=== PATIENT | female | born 2000 | race Caucasian/White ===

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

== ENCOUNTER 2022-12-03 18:21 | Emergency (ER) | payer SELFPAY ==
[2022-12-03 19:05] VITALS: BP 160/104; PULSE 121; RESP 22; TEMP 37; O2SAT 99; BMI 39.4
--- NOTE | 2022-12-03 19:53 | EXP.UTC ---
Discharge Plan Disposition Patient Disposition: Home, Self-Care Condition: Good Prescriptions Prescriptions: New prednisone 10 mg tablet 10 mg PO BID 5 Days Qty: 10 0RF azithromycin [Zithromax Z-Matias] 250 mg tablet See Rx Instructions .ROUTE .COMPLEX 5 Days Qty: 6 0RF Rx Instructions: For 250 mg dose pack: take 500 mg today (day 1), then 250 mg for 4 days (days 2-5) benzonatate 100 mg capsule 100 mg PO BID PRN (Reason: cough) Qty: 15 0RF Rx Instructions: Take at night for cough guaifenesin [Mucinex] 600 mg tablet extended release 12hr 1,200 mg PO BID PRN (Reason: cough) Qty: 20 0RF No Action losartan-hydrochlorothiazide 50-12.5 mg tablet 1 tab PO DAILY Label Comments: TAKE 1 TABLET 1 TIME EACH DAY Referrals Follow up/Referrals: Vishal Lozoya APRN [Primary Care Provider] - See instructions Activity Restrictions/Add. Instructions Additional Instructions/Restrictions: Follow up with your Family Doctror you need to have follow up chest xray in 4-6wks Again follow with your family doctor for repeat chest xray as discussed to monitor area as discussed Start antibiotic today. Be sure to complete entire prescription even if feeling better Monitor temp. Tylenol every 4 hours as needed and / or ibuprofen every 6 hours as needed ( As long as your primary care physician has told you that it ok to take both. For fever/aches/pains ER if no less than 101 despite Tylenol or Motrin Humidifier/vaporizer or hot steamy shower Inhaler every 4-6 hours as needed like we discussed. If unsure how to use it, ask pharmacist to demonstrate how. Should help open airways and improve cough, wheezing, and shortness of breath Mucinex during the day for your cough and cough suppressant only at night. Be sure to drink lots of water. *Tessalon Perles will not cause drowsiness but use at bedtime to help stop cough so that you may get some rest. *Start steroid today. Helps with inflammation therefore, cough and wheezing. Follow directions on the package. Reviewed side effects. Patient reports taking them before. Follow up IMMEDIATELY for new or worsening of symptoms OR no noticeable improvement over the next 48-72 hours. 911 immediately for any life threatening symptoms such as chest pain or difficulty breathing Clinical Impressions Clinical Impression: Pneumonia Stand Alone Forms Stand Alone Forms: Work/School Release Instructions Patient Instructions: Pneumonia-Adult, Cough Discharge ED Provider: Rosario Rivera [facility] General Stated complaint: Deep Cough Mode of Arrival: Ambulatory Source of Information: Patient Limitations: No Limitations Time Seen by Provider: 12/03/22 19:53 Description of Symptoms (Recalled from Triage Doc. by RN): PATIENT C/O DEEP COUGH THAT IS MAKING HER CHEST SORE THAT STARTED LAST NIGHT. DENIES ANY OTHER SYMPTOMS HEENT Symptoms (Recalled from RN notes): No Resp Symptoms (Recalled from RN notes): Yes Skin Symptoms (Recalled from RN notes): No MS Symptoms (Recalled from RN notes): No Functional Status (Recalled from RN notes): WNL History of Present Illness Provider Complaint: Patient states that she had bronchitis a few weeks ago, States that she started last night with worsening cough, States that she wasnt able to sleep much for the cough and has had a little chest congestion but not coughing anything up, States that she is starting to get sore from coughing so much. denies fever, denies chills, denies SOA states that she is just having a deep cough that hurts at times when she coughs Related Data Home Medications Medication Instructions Recorded Confirmed losartan 50 mg-hydrochlorothiazide 1 tab PO DAILY Hypertension 12/03/22 12/03/22 12.5 mg tablet Previous Rx's Medication Instructions Recorded azithromycin 250 mg tablet See Rx Instructions PO .COMPLEX 5 12/03/22 (Zithromax Z-Matias) days #6 tabs benzonatate 100 mg
--- NOTE | 2022-12-03 19:58 | XR_ITS ---
PROCEDURE INFORMATION: Exam: XR Chest Exam date and time: 12/03/2022 7:56 PM Age: 22 years old Clinical indication: Cough TECHNIQUE: Imaging protocol: Radiologic exam of the chest. Views: 2 views. COMPARISON: No relevant prior studies available. FINDINGS: Lungs: Hazy increased density noted overlying the heart on the lateral view thought to lie in the right middle lobe on the PA view suggesting possible developing right middle lobe pneumonia. And incidental 6 mm nodular appearing density in the right mid lung over the 3rd anterior and 6th posterior interspace that is seen anteriorly on the lateral view. Pleural spaces: Unremarkable. No pleural effusion. No pneumothorax. Heart/Mediastinum: Unremarkable. Bones/joints: Unremarkable. IMPRESSION: 1. Right middle lobe infiltrate. Advise follow-up chest x-ray in 4-6 weeks to ensure resolution of this finding. 2. Incidental 6 mm right upper lobe nodule fairly dense for size suggesting a calcified granuloma.
[2022-12-03 20:07] LABS: UTC Pregnancy Test, Urine Negative (Negative)
[2022-12-03 21:03] VITALS: BP 150/92; PULSE 100; RESP 22; TEMP 37; O2SAT 99
== END 2022-12-03 21:08 | disposition home or self-care (01) ==
PROVIDERS: Emergency Provider Nurse Practitioner; PCP Nurse Practitioner Family
DX: J18.9 Pneumonia, unspecified organism (principal); R05.1 Acute cough
CPT/HCPCS: 71046; 81025; 99212; 99214; G0463

== ENCOUNTER 2023-07-20 14:58 | Emergency (ER) | payer SELFPAY ==
[2023-07-20 15:30] VITALS: BP 172/106; PULSE 88; RESP 20; TEMP 36.6; O2SAT 99; BMI 38.2
--- NOTE | 2023-07-20 15:44 | EXP.UTC ---
Discharge Plan Disposition Patient Disposition: Home, Self-Care Condition: Good Prescriptions Prescriptions: New methocarbamol 500 mg tablet 500 mg PO TID PRN (Reason: muscle spasm) Qty: 12 0RF ondansetron 4 mg tablet,disintegrating 4 mg PO Q8H PRN (Reason: nausea and vomiting) Qty: 10 0RF No Action losartan 25 mg Tablet 25 mg PO DAILY Referrals Follow up/Referrals: Provider,Referral, MD [Primary Care Provider] - See instructions Activity Restrictions/Add. Instructions Additional Instructions/Restrictions: Make sure that you are taking your blood pressure medication as prescribed *Monitor Temp, Over the counter Motrin or Tylenol as directed/as needed Tylenol every 4 hours and Motrin every 6 hours (as long as your family doctor has told you that you can take it) for fever or pain. and straight to ER if unable to lower temp less than 101.0 after medication given *Warm salt water gargles may help to soothe the throat Make sure that you are drinking plenty of fluids for the next few days *Throat Lozenges? *Warm fluids like tea with honey may help to soothe the throat? *Sleep elevated *Humidifier/Vaporizer Your throat swab was sent for culture. Those results are typically sent to your primary care. Be sure to follow up in 2-3 days with your family doctor/primary care physician if no improvement so they can review those result and treat if necessary. If you don?t have a primary care doctor, I recommend you get one but in the mean time, you will have to return to a walk in clinic Follow up IMMEDIATELY for new or worsening symptoms or no Noticeable improvement over the next 48-72 hours. 911 for difficulty breathing or swallowing You were tested for today for COVID19 your test result should be back in the next 24hours you may check your results on the [facility]? My Health Portal if you are positive you must Quarantine for 5 days Clinical Impressions Clinical Impression: Viral syndrome, Spasm of muscle of lower back Stand Alone Forms Stand Alone Forms: Work/School Release Instructions Patient Instructions: DI for Low Back Pain, DI for Viral Syndrome, Nausea and Vomiting-Adult Discharge ED Provider: Rosario Rivera [facility] [place] HPI General Stated complaint: throat and back is hurting Mode of Arrival: Ambulatory Source of Information: Patient Limitations: No Limitations Time Seen by Provider: 07/20/23 15:44 Description of Symptoms (Recalled from Triage Doc. by RN): PATIENT C/O SORE THROAT, FEVER, VOMITING, AND LOWER BACK PAIN SINCE YESTERDAY HEENT Symptoms (Recalled from RN notes): Yes Resp Symptoms (Recalled from RN notes): No Skin Symptoms (Recalled from RN notes): No MS Symptoms (Recalled from RN notes): No Functional Status (Recalled from RN notes): WNL History of Present Illness Provider Complaint: Patient states that yesterday she felt like she may have a fever, had sore throat and some Nausea and vomiting States that she hasnt vomited since yesterday but thinks she may have pulled something in her lower back while vomiting she is having and achy like feeling in her lower back that is worse with movement Denies loss of control of bowel or bladder States that throat was hurting worse today so she came in Related Data Home Medications Medication Instructions Recorded Confirmed losartan 25 mg tablet 25 mg PO DAILY 07/20/23 07/20/23 Previous Rx's Medication Instructions Recorded methocarbamol 500 mg tablet 500 mg PO TID PRN muscle spasm #12 07/20/23 tabs ondansetron 4 mg disintegrating 4 mg PO Q8H PRN nausea and 07/20/23 tablet vomiting #10 tabs Allergies Allergy/AdvReac Type Severity Reaction Status Date / Time Penicillins Allergy Unknown - Verified 12/03/22 19:16 Worker's Comp Is this a Worker's Comp case?: [facility] Dis[facility]: The information contained in this section may have been updated after the patient was seen, as this informa
[2023-07-20 15:58] LABS: Apearance,Urine Clear (Clear); Color,Urine Dark Yellow (Yellow); PH,Urine 5.5 (5.0-8.5)
[2023-07-20 15:59] LABS: Bilirubin,Urine 1+ (Negative); Blood, Urine Trace (Negative); Glucose,Urine (UA) Negative (Negative); Ketones,Urine Negative (Negative); Protein,Urine 1+ (Negative); UTC Leukocyte Esterase,Urine Negative (Negative); UTC Nitrate,Urine Negative (Negative); UTC Pregnancy Test, Urine Negative (Negative); Urobilinogen,Urine 1 EU/dl (0.2)
[2023-07-20 16:13] LABS: UTC Strep Screen (Rapid) Negative (Negative)
[2023-07-20 16:25] VITALS: BP 172/106; PULSE 88; RESP 20; TEMP 36.6; O2SAT 99
== END 2023-07-20 16:27 | disposition home or self-care (01) ==
PROVIDERS: Emergency Provider Nurse Practitioner
DX: R11.2 Nausea with vomiting, unspecified (principal); M62.830 Muscle spasm of back; R50.9 Fever, unspecified; B34.9 Viral infection, unspecified; I10 Essential (primary) hypertension
CPT/HCPCS: 81003; 81025; 87635; 87880; 99212; 99214; G0463

== ENCOUNTER 2024-04-16 12:39 | Emergency (ER) | payer BC, SELFPAY ==
[2024-04-16 12:40] VITALS: BP 173/105; PULSE 92; RESP 18; TEMP 36.6; O2SAT 98; BMI 36.1
--- NOTE | 2024-04-16 13:27 | EXP.UTC ---
Discharge Plan Disposition Patient Disposition: Home, Self-Care Condition: Good Prescriptions Prescriptions: No Action losartan 25 mg Tablet 25 mg PO DAILY methocarbamol 500 mg tablet 500 mg PO TID PRN (Reason: muscle spasm) Qty: 12 0RF ondansetron 4 mg tablet,disintegrating 4 mg PO Q8H PRN (Reason: nausea and vomiting) Qty: 10 0RF Referrals Follow up/Referrals: Vishal Lozoya APRN [Primary Care Provider] - See instructions Activity Restrictions/Add. Instructions Additional Instructions/Restrictions: *Monitor Temp, Over the counter Motrin or Tylenol as directed/as needed Tylenol every 4 hours and Motrin every 6 hours (as long as your family doctor has told you that you can take it) for fever or pain. and straight to ER if unable to lower temp less than 101.0 after medication given *Warm salt water gargles may help to soothe the throat *Throat Lozenges? *Warm fluids like tea with honey may help to soothe the throat? *Sleep elevated *Humidifier/Vaporizer *Flonase 2 sprays in each nostril daily but be aware that it may take 2-3 days before you notice improvement *Bromfed may cause drowsiness. Know how it effects you (your child) before driving, caring for small child, or sending your child to school. Not other antihistamines/allergy medications while taking bromfed Your throat swab was sent for culture. Those results are typically sent to your primary care. Be sure to follow up in 2-3 days with your family doctor/primary care physician if no improvement so they can review those result and treat if necessary. If you don?t have a primary care doctor, I recommend you get one but in the mean time, you will have to return to a walk in clinic Follow up IMMEDIATELY for new or worsening symptoms or no Noticeable improvement over the next 48-72 hours. 911 for difficulty breathing or swallowing Clinical Impressions Clinical Impression: Viral upper respiratory infection Stand Alone Forms Stand Alone Forms: Work/School Release Instructions Patient Instructions: DI for Viral Upper Respiratory Infection -- Adult Print Language Print Language: [place] Discharge ED Provider: Rosario Rivera [facility] [place] HPI General Stated complaint: headache, congestion, cough, sore throat Time Seen by Provider: 04/16/24 13:27 History of Present Illness Provider Complaint: Patient states that everyone in the house is sick, states that she has been having sore throat, body aches, chills, headache, cough and over all not feeling well States she seen her PCP yesterday and they tested her for strep throat and COVID and they was negative but she was still feeling bad this morning and her PCP told her she needed to come in and get retested Related Data Home Medications ?Medication ?Instructions ?Recorded ?Confirmed losartan 25 mg tablet 25 mg PO DAILY 07/20/23 07/20/23 Previous Rx's ?Medication ?Instructions ?Recorded methocarbamol 500 mg tablet 500 mg PO TID PRN muscle spasm #12 07/20/23 tabs ondansetron 4 mg disintegrating 4 mg PO Q8H PRN nausea and 07/20/23 tablet vomiting #10 tabs Allergies Allergy/AdvReac Type Severity Reaction Status Date / Time Penicillins Allergy Unknown - Verified 12/03/22 19:16 [facility] Disclaimer: The information contained in this section may have been updated after the patient was seen, as this information can be updated by other users. Medical History (Updated 04/16/24 @ 14:00 by Rosario Rivera APRN) Hypertension Surgical History (Updated 07/20/23 @ 15:45 by Keya Novoa RN) History of section Social History (Updated 12/03/22 @ 21:03 by Rosario Rivera APRN) Smoking Status: Never smoker alcohol intake: never current occupational status: employed Travel in the last 8 weeks: None ROS Obtained: Yes All systems reviewed & no additional complaints except as documented and Yes Systems reviewed as appropriate & no additional complaints except as documented Constitutional Constitutional: Reports system reviewed and no additional complaints, except as documented, Reports as per HPI, Reports body ache, Reports chills and Reports headache(s) ENT Ears, Nose, Mouth, and Throat: Reports system reviewed and no additional complaints, except as documented, Reports as per HPI, Reports headache(s), Reports nasal congestion, Reports nasal discharge and Reports sore throat Cardiovascular Cardiovascular: Reports system reviewed and no additional complaints, except as documented and Reports as per HPI Respiratory Respiratory: Reports system reviewed and no additional complaints, except as documented, Reports as per HPI and Reports cough Gastrointestinal Gastrointestingal: Reports system reviewed and no additional complaints, except as documented and as per HPI Neurologic Neurologic: Reports headache(s) Physical Exam General General appearance: alert and in no apparent distress ENT ENT exam: Present mucous membranes moist Expanded ENT Exam Nose exam: Absent sinus tenderness Throat exam: Present tonsillar erythema Respiratory Respiratory exam: Present normal lung sounds bilaterally; Absent respiratory distress or wheezes Cardiovascular Cardiovascular exam: Present regular rate, normal rhythm and normal heart sounds Neurological Exam Neurological exam: Present alert, oriented X3 and normal gait Medical Decision Making Mayank Inquiry Pt receiving controlled substance: No Mayank was queried for this patient: No Lab Data Lab results reviewed: Yes I reviewed the patient's lab results.
[2024-04-16 14:09] VITALS: BP 173/105; PULSE 98; RESP 18; TEMP 36.6; O2SAT 98
[2024-04-16 14:10] LABS: Coronavirus 19, PCR Not Detected (NotDetected); Influenza A, PCR Not Detected (NotDetected); Influenza B, PCR Not Detected (NotDetected)
[2024-04-16 18:32] LABS: UTC Strep Screen (Rapid) Negative (Negative)
== END 2024-04-16 14:10 | disposition home or self-care (01) ==
PROVIDERS: Emergency Provider Nurse Practitioner; PCP Nurse Practitioner Family
DX: R51.9 Headache, unspecified (principal); R07.0 Pain in throat; R05.9 Cough, unspecified; J06.9 Acute upper respiratory infection, unspecified; B34.9 Viral infection, unspecified
CPT/HCPCS: 87636; 87880; 99212; 99213; G0463